=== PATIENT | female | born 1995 | race Caucasian/White ===

== ENCOUNTER 2016-10-25 07:38 | Emergency (ER) | payer OTHER ==
[~2016-10-25] VITALS: Ht 157.5 cm; Wt 98.4 kg
[~2016-10-25 07:38] MED LIST: TRAM50TA PO
[2016-10-25] MEDS ORDERED: IV NORMAL SALINE 1000ML BAG 1,000 ML IV SCH (08:09)
[2016-10-25] MEDS ORDERED: ONDANSETRON PF 4 MG/2 ML VIAL. IV ONE (08:15)
--- NOTE | 2016-10-25 08:20 | ED.ADGEN ---
Past Medical History Past Medical History: Asthma, Hypertension, Other Additional Past Medical Histor: gestational DM, ulcer Past Surgical History: Appendectomy Alcohol Use: None Drug Use: None Adult General Chief Complaint Chief Complaint: ABDOMINAL PAIN HPI HPI Patient is a 21 year old , who presents to the emergency department with complaint of abdominal cramping, located in the right lower quadrant, associated with nausea, and diarrhea that began yesterday. Patient denies any sick contacts or exposures, was informed that she is today in the emergency department. Her last menstrual period was the middle of September. She denies any discharge or drainage from the vagina, any bleeding or fluid gush, any concerns for STI exposures. Denies any urinary complaints. States that the cramping is most severe when she is expressing episode of diarrhea. Had 3 episodes of loose brown stool, and several episodes of emesis. States that she is nauseous currently. Food and fluid, denies any blood or emesis or in stool. No recent travel or concerning exposures, no injuries, no similar symptoms previously. The 1-year-old at home after a that was commented by gestational diabetes. Review of Systems Review of Systems Constitutional: Denies fever or chills. [] Eyes: Denies change in visual acuity. [] HENT: Denies nasal congestion or sore throat. [] Respiratory: Denies cough or shortness of breath. [] Cardiovascular: Denies chest pain or edema. [] GI: Lower quadrant cramping abdominal pain, nausea and vomiting, diarrhea. : Denies dysuria. [] Musculoskeletal: Denies back pain or joint pain. [] Integument: Denies rash. [] Neurologic: Denies headache, focal weakness or sensory changes. [] Endocrine: Denies polyuria or polydipsia. [] Lymphatic: Denies swollen glands. [] Psychiatric: Denies depression or anxiety. [] Current Medications Current Medications Current Medications Medications (Trade) Dose Ordered Sig/Rekha Start Time Stop Time Status Last Admin Dose Admin Metoclopramide HCl (Reglan) 10 mg 1X ONCE 10/25/16 08:30 10/25/16 08:31 DC 10/25/16 08:23 10 MG Ondansetron HCl (Zofran) 4 mg 1X ONCE 10/25/16 08:15 10/25/16 08:36 DC Sodium Chloride (Iv Sodium Chloride 0.9% 1000ml Bag) 1,000 ml @ 1,000 mls/hr Q1H 10/25/16 08:09 10/25/16 09:08 DC 10/25/16 08:20 1,000 MLS/HR Allergies Allergies Allergies Coded Allergies Type Severity Reaction Last Updated Verified No Known Drug Allergies 11/09/15 No Physical Exam Physical Exam Constitutional: Well developed, well nourished, no acute distress, non-toxic appearance. [] HENT: Normocephalic, atraumatic, bilateral external ears normal, oropharynx moist, no oral exudates, nose normal. [] Eyes: PERRLA, EOMI, conjunctiva normal, no discharge. [] Neck: Normal range of motion, no tenderness, supple, no stridor. [] Cardiovascular:Heart rate regular rhythm, no murmur, S1, S2, rubs or gallops. [] Lungs & Thorax: Bilateral breath sounds clear to auscultation, no wheezing, rhonchi, rales. No chest or crepitus or tenderness. [] Abdomen: Bowel sounds normal, soft, obese, mild tenderness palpation in the lower quadrants and suprapubic region, no rebound, rigidity, guarding no tenderness, no masses, no pulsatile masses. [] Skin: Warm, dry, no erythema, no rash. [] Back: No tenderness, no CVA tenderness. [] Extremities: No tenderness, no cyanosis, no clubbing, ROM intact, no edema. [] Neurologic: Alert and oriented X 3, normal motor function, normal sensory function, no focal deficits noted. [] Psychologic: Affect normal, judgement normal, mood normal. [] Pelvic examination: Normal-appearing external examination, bimanual examination reveals a nontender cervix, with a closed os, no adnexal masses or tenderness appreciated. Speculum examination performed without issue, normal appearing cervix with a small amount of white discharge. Current Patient Data Vital Signs Vital Signs Date Time Temp Pulse Resp B/P Pulse Ox O2 Delivery O2 Flow Rate FiO2 10/25/16 10:15 79 16 132/84 100 Room Air 10/25/16 07:56 99.3 99.3 Lab Values Laboratory Tests Test 10/25/16 06:57 10/25/16 07:45 10/25/16 08:05 POC Urine HCG, Qualitative Hcg positive (Negative) Urine Collection Type Unknown Urine Color Yellow Urine Clarity Cloudy Urine pH 5.5 Urine Specific [place] >=1.030 Urine Protein Negativemg/dL (NEG-TRACE) Urine Glucose (UA) >=1000mg/dL (NEG) Urine Ketones (Stick) Tracemg/dL (NEG) Urine Blood Negative (NEG) Urine Nitrite Negative (NEG) Urine Bilirubin Negative (NEG) Urine Urobilinogen Dipstick 0.2mg/dL (0.2 mg/dL) Urine Leukocyte Esterase Negative (NEG) Urine RBC 0/HPF (0-2) Urine WBC 0/HPF (0-4) Urine Amorphous Sediment Present/HPF Urine Bacteria 0/HPF (0-FEW) White Blood Count 9.2x10^3/uL (4.0-11.0) Red Blood Count 4.32x10^6/uL (3.50-5.40) Hemoglobin 13.8g/dL (12.0-15.5) Hematocrit 40.7% (36.0-47.0) Mean Corpuscular Volume 94fL (79-100) Mean Corpuscular Hemoglobin 32pg (25-35) Mean Corpuscular Hemoglobin Concent 34g/dL (31-37) Red Cell Distribution Width 12.4% (11.5-14.5) Platelet Count 264x10^3/uL (140-400) Neutrophils (%) (Auto) 60% (31-73) Lymphocytes (%) (Auto) 24% (24-48) Monocytes (%) (Auto) 11% (0-9) H Eosinophils (%) (Auto) 4% (0-3) H Basophils (%) (Auto) 1% (0-3) Neutrophils # (Auto) 5.5x10^3uL (1.8-7.7) Lymphocytes # (Auto) 2.2x10^3/uL (1.0-4.8) Monocytes # (Auto) 1.0x10^3/uL (0.0-1.1) Eosinophils # (Auto) 0.4x10^3/uL (0.0-0.7) Basophils # (Auto) 0.1x10^3/uL (0.0-0.2) Maternal Serum HCG Beta Subunit 82mIU/mL (0-6) H Sodium Level 138mmol/L (136-145) Potassium Level 3.6mmol/L (3.5-5.1) Chloride Level 104mmol/L (98-107) Carbon Dioxide Level 20mmol/L (21-32) L Anion Gap 14 (6-14) Blood Urea Nitrogen 13mg/dL (7-20) Creatinine 0.7mg/dL (0.6-1.0) Estimated GFR (Cockcroft-Gault) 105.6 BUN/Creatinine Ratio 19 (6-20) Glucose Level 271mg/dL (70-99) H Calcium Level 8.9mg/dL (8.5-10.1) Total Bilirubin 0.4mg/dL (0.2-1.0) Aspartate Amino Transferase (AST) 23U/L (15-37) Alanine Aminotransferase (ALT) 42U/L (14-59) Alkaline Phosphatase 77U/L (46-116) Total Protein 7.8g/dL (6.4-8.2) Albumin 4.0g/dL (3.4-5.0) Albumin/Globulin Ratio 1.1 (1.0-1.7) Lipase 60U/L (73-393) L Laboratory Tests 10/25/16 08:05 Laboratory Tests 10/25/16 08:05 Microbiology 10/25/16 Wet Prep - Final, Complete EKG EKG Not indicated. [] Radiology/Procedures Radiology/Procedures Not indicated. [] Course & Med Decision Making Course & Med Decision Making Pertinent Labs and Imaging studies reviewed. (See chart for details) Patient well-appearing, very mild discomfort in the ED, no vomiting the emergency department, patient with nausea resolved after receiving Reglan in the ED. Wet prep is negative, urinalysis is are reveal evidence of infection, laboratory studies are unremarkable aside from a glucose of 271. Patient is a history of gestational diabetes as stated. I did speak with Dr. Arroyo of [facility] , at this time as the patient's beta quantitative assays 82, very early , he recommended that she follow-up promptly with her [facility], for additional assessment, no interventions recommended at this time. I did discuss this with the patient. We did discuss dietary changes, importance of follow-up with her [facility], use of Reglan as needed for nausea, and vitamins. Patient may be expressing a viral illness could be exacerbating the hyperglycemia as well, we did discuss concerning symptoms that would prompt return to the ED in detail, patient voiced understanding and agreement, discharged home in stable condition with plan to follow-up, use. Or vitamins and Reglan as needed, and to return to the ED for concerning symptoms as discussed. Dragon Disclaimer Dragon Disclaimer This electronic medical record was generated, in whole or in part, using a voice recognition dictation system. Departure Impression: Primary Impression: Abdominal pain Additional Impressions: Abdominal pain during Hyperglycemia in Nausea and vomiting Disposition: 01 HOME, SELF-CARE Condition: IMPROVED Scripts Metoclopramide Hcl (Reglan)10 Mg Tablet1 Tab PO QID PRN NAUSEA #16 TAB Prov:ADINA AGUIAR DO 10/25/16 Problem Qualifiers ADINA AGUIAR DO Oct 25, 2016 08:20
[2016-10-25] MEDS ORDERED: METOCLOPRAMIDE HCL 10 MG/2 ML VIAL. IV ONE (08:30)
[2016-10-25 08:34] LABS: BASO # 0.1 x10^3/uL (0.0-0.2); BASO % 1 % (0-3); EOS % 4 % (0-3); HEMATOCRIT 40.7 % (36.0-47.0); HEMOGLOBIN 13.8 g/dL (12.0-15.5); LYMPH # 2.2 x10^3/uL (1.0-4.8); LYMPH % 24 % (24-48); MEAN CORPUSCULAR HEMOGLOBIN 32 pg (25-35); MEAN CORPUSCULAR HGB CONC 34 g/dL (31-37); MEAN CORPUSCULAR VOLUME 94 fL (79-100); MONO % 11 % (0-9); NEUT % 60 % (31-73); PLATELET COUNT 264 x10^3/uL (140-400); RED BLOOD COUNT 4.32 x10^6/uL (3.50-5.40); RED CELL DISTRIBUTION WIDTH 12.4 % (11.5-14.5); WHITE BLOOD COUNT 9.2 x10^3/uL (4.0-11.0)
[2016-10-25 08:40] LABS: CALCIUM 8.9 mg/dL (8.5-10.1); CREATININE 0.7 mg/dL (0.6-1.0); GFR 105.6; POTASSIUM 3.6 mmol/L (3.5-5.1)
[2016-10-25 08:46] LABS: ALBUMIN/GLOBULIN RATIO 1.1 (1.0-1.7); TOTAL BILIRUBIN 0.4 mg/dL (0.2-1.0); TOTAL PROTEIN 7.8 g/dL (6.4-8.2)
[2016-10-25 08:47] LABS: BILIRUBIN,URINE NEGATIVE (NEG); GLUCOSE,URINE >=1000 mg/dL (NEG); NITRITE,URINE NEGATIVE (NEG); PH,URINE 5.5; PROTEIN,URINE NEGATIVE (NEG-TRACE); UROBILINOGEN,URINE 0.2 mg/dL (0.2 mg/dL)
[2016-10-25 08:49] LABS: BACTERIA,URINE 0 /HPF (0-FEW); RBC,URINE 0 /HPF (0-2); WBC,URINE 0 /HPF (0-4)
[2016-10-25 10:15] VITALS: BP 132/84
[2016-10-25] MEDS ORDERED: METO10TA81 PO (10:47)
== END 2016-10-25 10:53 | disposition home or self-care (01) ==
LOC: ER 07:38
DX: O26.899 Other specified pregnancy related conditions, unspecified trimester (principal); R10.31 Right lower quadrant pain; O21.0 Mild hyperemesis gravidarum; E11.65 Type 2 diabetes mellitus with hyperglycemia; I10 Essential (primary) hypertension; J45.909 Unspecified asthma, uncomplicated; Z90.49 Acquired absence of other specified parts of digestive tract
CPT/HCPCS: 36415; 80053; 81001; 81025; 83690; 84702; 85027; 87491; 87591; 96361; 96374; 99285; J2765; J7030; Q0111

== ENCOUNTER 2016-11-16 16:24 | Emergency (ER) | payer OTHER ==
[~2016-11-16] VITALS: Ht 157.5 cm; Wt 98.4 kg
[~2016-11-16 16:24] MED LIST changes: +METO10TA81 PO
[2016-11-16 16:34] VITALS: BP 148/74
--- NOTE | 2016-11-16 16:35 | ED.ADGEN ---
Past Medical History Past Medical History: Asthma, Hypertension, Other Additional Past Medical Histor: gestational DM, ulcer Past Surgical History: Appendectomy Alcohol Use: None Drug Use: None Adult General Chief Complaint Chief Complaint: altered mental status HPI HPI Patient is a 21 year old female with history of insulin-dependent diabetes who presents with altered mental status and hypoglycemia. Patient takes long-acting insulin and NovoLog. She last took insulin last night but has not had anything to eat this morning or this afternoon. She began to feel weak and lightheaded and checked her blood sugar which showed 53. The patient then called EMS. Patient was given 1 amp of D50 on route and had blood sugar 110 on ED arrival. Patient denies any acute symptoms or complaints at this time and her symptoms have fully resolved. Review of Systems Review of Systems ROS as per HPI. Allergies Allergies Allergies Coded Allergies Type Severity Reaction Last Updated Verified No Known Drug Allergies 11/09/15 No Physical Exam Physical Exam Constitutional: Well developed, well nourished, no acute distress, non-toxic appearance. HENT: Normocephalic, atraumatic, bilateral external ears normal, oropharynx moist, no oral exudates, nose normal. Eyes: PERRLA, EOM. Neck: Normal range of motion. Cardiovascular:Heart rate regular rhythm, no murmur. Lungs & Thorax: Bilateral breath sounds clear to auscultation. Skin: Warm, dry. Extremities: No tenderness. Neurologic: Alert and oriented X 3, normal motor function, normal sensory function, no focal deficits noted. Psychologic: Affect normal, judgement normal, mood normal. Current Patient Data Vital Signs Vital Signs Date Time Temp Pulse Resp B/P (MAP) Pulse Ox O2 Delivery O2 Flow Rate FiO2 11/16/16 16:34 97.6 98 20 148/74 (98) 100 Room Air 97.6 Lab Values Laboratory Tests Test 11/16/16 16:53 Glucose (Fingerstick) 154 mg/dL (70-99) H EKG EKG [] Radiology/Procedures Radiology/Procedures [] Impressions: HypOlycemia resolved prior to ED arrival Course & Med Decision Making Course & Med Decision Making Pertinent Labs and Imaging studies reviewed. (See chart for details) [Patient ate sandwich shortly after ED arrival. Blood sugar 154. When asked why patient did not eat after she discovered her blood sugar was low, she states she forgot and agrees to he regular meals, keep sugary snacks available and check her blood sugars more frequently. Patient's discharged home.] [place]ila Disclaimer Dragon Disclaimer This electronic medical record was generated, in whole or in part, using a voice recognition dictation system. ABDULAZIZ BAKER DO November 16, 2016 16:35
== END 2016-11-16 18:00 | disposition home or self-care (01) ==
LOC: ER 16:24
DX: E11.649 Type 2 diabetes mellitus with hypoglycemia without coma (principal)
CPT/HCPCS: 82947; 99283; 99284